=== PATIENT | male | born 1960 | race African-American/Black ===

== ENCOUNTER 2018-12-12 15:25 | Observation (INO) | payer OTHER ==
[2018-12-12 16:05] LABS: Basophils % (A) 1 %; Eosinophils # (A) 0.2 k/uL (0-0.7); Eosinophils % (A) 4 %; HCT 42.8 % (39.0-53.0); HGB 14.3 gm/dL (13.0-17.5); Lymphocytes # (A) 1.9 k/uL (1.0-4.8); Lymphocytes % (A) 37 %; MCH 30.9 pg (25.0-35.0); MCHC 33.4 g/dL (31.0-37.0); MCV 92.5 fL (80.0-100.0); Mean Platelet Volume 7.6; Monocytes # (A) 0.3 k/uL (0-1.0); Monocytes % (A) 7 %; Neutrophils # (A) 2.5 k/uL (1.3-7.7); Neutrophils % (A) 48 %; Platelet Count 232 k/uL (150-450); RBC 4.63 m/uL (4.30-5.90); RDW 14.5 % (11.5-15.5); WBC 5.3 k/uL (3.8-10.6)
[2018-12-12 16:12] LABS: INR 0.9 (<1.2); Partial Thromboplastin Time 26.1 sec (22.0-30.0); Prothrombin Time 10.2 sec (9.0-12.0)
[2018-12-12 16:14] LABS: ALT 46 U/L (21-72); AST 60 U/L (17-59); Albumin 4.4 g/dL (3.5-5.0); Alkaline Phosphatase 68 U/L (38-126); Anion Gap 8 mmol/L; Blood Urea Nitrogen 20 mg/dL (9-20); Calcium 10.4 mg/dL (8.4-10.2); Carbon Dioxide 29 mmol/L (22-30); Chloride 101 mmol/L (98-107); Glucose 76 mg/dL (74-99); Lipase 48 U/L (23-300); Magnesium 1.7 mg/dL (1.6-2.3); Potassium 4.8 mmol/L (3.5-5.1); Sodium 138 mmol/L (137-145); Total Bilirubin 0.5 mg/dL (0.2-1.3); Total Protein 7.1 g/dL (6.3-8.2)
[2018-12-12] MEDS ORDERED: MAGNESIUM SULFATE-D5W PMX 1 GM in DEXTROSE/WATER 1 100ML.BAG IVPB ONE (16:40)
--- NOTE | 2018-12-12 16:50 | XR ---
EXAMINATION TYPE: XR chest 2V DATE OF EXAM: 12/12/2018 COMPARISON: NONE HISTORY: Chest pain TECHNIQUE: Frontal and lateral views of the chest are obtained. FINDINGS: There is no focal air space opacity, pleural effusion, or pneumothorax seen. Slight pulmo nary hyperinflation may relate to degree of inspiration or underlying COPD. The cardiac silhouette si ze is within normal limits. The osseous structures are intact. IMPRESSION: No acute cardiopulmonary process.
--- NOTE | 2018-12-12 19:05 | ED ---
Chest Pain HPI - General Chief Complaint: Chest Pain Stated Complaint: CHEST PAIN Time Seen by Provider: 12/12/18 15:28 Source: patient, EMS Mode of arrival: EMS Limitations: no limitations - History of Present Illness Initial Comments: The patient is a 58-year-old male who presents to the emergency department from [place]. The patient reports a history of chest pain for the past 30 days. States he has had approximately 5 episodes. He will have sudden onset of right-sided chest pain that will radiate to the left side of his chest and into his left arm. Denies any ripping or tearing sensation to his back. Denies any provocative factors. States he will have mild associated shortness of breath. The pain will last for 15-30 minutes before spontaneously resolving. He normally does not take any medications for his symptoms. He denies a history of cardiac disease. No associated nausea, vomiting or diaphoresis. The chest pain is not reproducible. Today when the incident happened EMS did provide him with 324 mg of chewable aspirin and the pain resolved. Denies a pleuritic chest pain. No history of DVTs or PEs. No family history of blood clotting disorders. The patient has not used cocaine, heroin or alcohol in 30 days - Related Data Home Medications Medication Instructions Recorded Confirmed Divalproex Sodium [Depakote] 500 mg PO BID 12/12/18 12/12/18 Multivitamins, Thera [Multivitamin 1 tab PO DAILY 12/12/18 12/12/18 (formulary)] QUEtiapine [SEROquel] 100 mg PO HS 12/12/18 12/12/18 Allergies Allergy/AdvReac Type Severity Reaction Status Date / Time No Known Allergies Allergy Verified 12/12/18 15:48 Review of Systems ROS Statement: Those systems with pertinent positive or pertinent negative responses have been documented in the HPI. ROS Other: All systems not noted in ROS Statement are negative. EKG Findings - EKG Comments: EKG Findings:: EKG demonstrates a normal sinus rhythm with a ventricular rate of 64. DC interval 146 QRS 92 and QTC of 410. There are no acute ST segment elevations. The patient does have some J-point elevation in leads V2 through V4 however this is less then 2 mm which would be normal for the patient's age. There is a T-wave inversion in lead [address] depression. Past Medical History Past Medical History: Chest Pain / Angina History of Any Multi-Drug Resistant Organisms: None Reported Additional Past Surgical History / Comment(s): back sx Past Psychological History: No Psychological Hx Reported Smoking Status: Former smoker Past Alcohol Use History: Daily Past Drug Use History: Cocaine General Exam Limitations: no limitations General appearance: alert, in no apparent distress Head exam: Present: atraumatic, normocephalic, normal inspection Eye exam: Present: normal appearance, PERRL, EOMI. Absent: scleral icterus, conjunctival injection, periorbital swelling ENT exam: Present: normal exam, mucous membranes moist Neck exam: Present: normal inspection. Absent: tenderness, meningismus, lymphadenopathy Respiratory exam: Present: normal lung sounds bilaterally. Absent: respiratory distress, wheezes, rales, rhonchi, stridor Cardiovascular Exam: Present: regular rate, normal rhythm, normal heart sounds, other (The patient has symmetric palpable pulses. No reproducible chest pain). Absent: systolic murmur, diastolic murmur, rubs, gallop, clicks GI/Abdominal exam: Present: soft, normal bowel sounds. Absent: distended, tenderness, guarding, rebound, rigid Extremities exam: Present: normal inspection, full ROM, normal capillary refill. Absent: tenderness, pedal edema, joint swelling, calf tenderness Back exam: Present: normal inspection Neurological exam: Present: alert, oriented X3, CN II-XII intact Psychiatric exam: Present: normal affect, normal mood Skin exam: Present: warm, dry, intact, normal color. Absent: rash Course Vital Signs 12/12/18 12/12/18 12/12/18 15:38 17:14 19:00 Temperature 98.0 F Pulse Rate 66 70 65 Respiratory 16 18 16 Rate Blood Pressure 118/65 137/97 117/80 O2 Sat by Pulse 97 98 97 Oximetry 12/12/18 19:36 Temperature Pulse Rate Respiratory 18 Rate Blood Pressure O2 Sat by Pulse Oximetry Chest Pain MDM - Differential Diagnosis ACS, Pericarditis, GERD, Esophageal Spasm - MDM The patient was placed into room 1. A 12-lead EKG was performed. The patient was hooked up to continuous pulse ox and cardiac monitoring. He had been previously given 324 mg of chewable aspirin by EMS. I did recommend laboratory studies. The patient was sent for chest x-ray. Upon return results the patient continues to be symptom free. I did recommend hospital admission for which the patient did agree. I called and discussed the case with Dr. Tristan as the patient's primary care physician is not on staff. Dr. Tristan did accept admission of the patient. The patient will remain on cardiac monitoring and we will trend his troponins. The patient remained in stable condition and was transported to the floor Disposition Clinical Impression: Chest pain Disposition: ADMITTED IP TO THIS HOSP Condition: Stable Is patient prescribed a controlled substance at d/c from ED?: No Time of Disposition: 19:05 Decision to Admit Reason: Admit from EC Decision Date: 12/12/18 Decision Time: 19:05
[2018-12-12] MEDS ORDERED: QUEtiapine 100 MG TAB PO SCH (21:00)
--- NOTE | 2018-12-12 22:26 | HP ---
HISTORY AND PHYSICAL CHIEF COMPLAINT: Chest pain. HISTORY OF PRESENT ILLNESS: This gentleman presented to the emergency room with a history of some chest pain. He states it had been going on off and on for about a month. It is just to the right of the sternal border and then he stated it radiated into the left arm. He is a little bit short of breath, but he had no diaphoresis, nausea, etc. He thinks it might be related to eating. He has no risk factors for heart disease. Studies in the ER were negative. REVIEW OF SYSTEMS: He has had no neurologic problems, difficulty with vision or hearing, chest pain, shortness of breath, cough, hemoptysis, hypertension, murmurs, rheumatic fever, orthopnea, PND, abdominal pain, GERD, nausea, vomiting, hematemesis, dysphagia, melena, hematochezia, jaundice, hepatitis, cirrhosis, hematuria, renal failure, urgency, frequency, etc. He is not diabetic past medical history, family history personal and social history reveal that he is on Depakote and Seroquel. He is not allergic to anything. He had a fracture of the tibia that was treated before and a procedure on his back. He smokes about half pack of cigarettes a day and he is a recovering alcoholic. PHYSICAL EXAMINATION: Blood pressure is 141/86 with a pulse of 73, respirations of 22, and he is afebrile. In general, he appeared to be well developed, well nourished, in no acute distress. Skin color is normal skin is warm, dry. Lymph nodes not enlarged. HEENT: Normal. NECK: Neck veins not distended. Thyroid is not enlarged. CHEST: Clear. Chest wall nontender. CARDIAC: Exam is normal. Normal normal sinus rhythm and no murmurs or extra sounds. ABDOMEN: Soft and nontender without any visceromegaly or masses. Bowel sounds are present. EXTREMITIES: Normal. NEUROLOGIC: Intact. IMPRESSION: 1. Atypical chest pain. 2. Bipolar depression. PLAN: 1. Bed rest. 2. IV fluids. 3. Serial EKGs and enzymes. MMODL / IJN: [id number] /
[2018-12-12] MEDS: DIVALPROEX 500 MG TABLET.DR PO SCH (22:41)
[2018-12-13 03:16] LABS: Basophils % (A) 1 %; Eosinophils # (A) 0.3 k/uL (0-0.7); Eosinophils % (A) 6 %; HCT 42.5 % (39.0-53.0); Lymphocytes # (A) 2.1 k/uL (1.0-4.8); Lymphocytes % (A) 43 %; MCH 30.8 pg (25.0-35.0); MCHC 32.9 g/dL (31.0-37.0); MCV 93.5 fL (80.0-100.0); Mean Platelet Volume 7.8; Monocytes # (A) 0.3 k/uL (0-1.0); Monocytes % (A) 7 %; Neutrophils # (A) 1.9 k/uL (1.3-7.7); Neutrophils % (A) 39 %; Platelet Count 209 k/uL (150-450); RBC 4.54 m/uL (4.30-5.90); WBC 4.8 k/uL (3.8-10.6)
[2018-12-13 03:36] LABS: Anion Gap 7 mmol/L; Blood Urea Nitrogen 21 mg/dL (9-20); Calcium 9.8 mg/dL (8.4-10.2); Carbon Dioxide 26 mmol/L (22-30); Chloride 103 mmol/L (98-107); Glucose 106 mg/dL (74-99); Magnesium 1.6 mg/dL (1.6-2.3); Potassium 4.5 mmol/L (3.5-5.1); Sodium 136 mmol/L (137-145)
[2018-12-13] MEDS: DIVALPROEX 500 MG TABLET.DR PO SCH (08:51)
[2018-12-13] MEDS ORDERED: MULTIVITAMINS, THERA 1 EACH TAB PO SCH (12:00)
[2018-12-13 12:18] VITALS: BP 127/79; PULSE 67; RESP 18; TEMP 97.9
--- NOTE | 2018-12-13 20:03 | DS ---
DISCHARGE SUMMARY CHIEF COMPLAINT: Chest pain. HISTORY OF PRESENT ILLNESS AND PHYSICAL EXAM: Details of this man's history and physical can be found in the initial workup. LABORATORY STUDIES: While he was in the hospital, he had laboratory studies, details of which can be found in the laboratory section of his chart. COURSE IN HOSPITAL: After admission, he was placed on bedrest, started on intravenous fluids and had serial EKGs and enzymes and they were normal. He was seen by Cardiology and felt that this was noncardiac. The patient was anxious to be transferred back to [place] and he was released on the . FINAL DIAGNOSES: 1. Atypical chest pain. 2. Bipolar depression. 3. Alcoholism. OPERATIONS: None. CONSULTATION: Cardiology. He is improved. MMODL / IJN: [id number] /
== END 2018-12-13 13:32 | disposition home or self-care (01) ==
LOC: EC 15:25 → 1SOBS 17:44
PROVIDERS: ADMIT Family Medicine; ATTEND Family Medicine
DX: R07.89 Other chest pain (principal); F31.9 Bipolar disorder, unspecified; F10.20 Alcohol dependence, uncomplicated; R06.02 Shortness of breath; F17.210 Nicotine dependence, cigarettes, uncomplicated; Z79.899 Other long term (current) drug therapy; Z87.81 Personal history of (healed) traumatic fracture
CPT/HCPCS: 96365; 99285; 36415; 93005; 80164; 83880; 80053; 80048; 84443; 83690; 83735 ×2; 84484 ×2; 85025 ×2; 85610; 85730; 71046; G0378 ×2; J3475

== ENCOUNTER 2019-02-20 17:21 | Emergency (ER) | payer OTHER ==
[2019-02-20 17:30] VITALS: BP 140/91; PULSE 74; RESP 20; TEMP 98.7
[2019-02-20] MEDS ORDERED: IBUPROFEN 600 MG TAB PO STA (18:06)
[2019-02-20] MEDS ORDERED: guaiFENesin-DM 600/30MG 1 EACH TAB.ER.12H PO STA (18:06)
[2019-02-20] MEDS ORDERED: DOCUSATE 100 MG CAP PO STA (18:06)
--- NOTE | 2019-02-20 18:40 | XR ---
EXAMINATION TYPE: XR chest 2V DATE OF EXAM: 02/20/2019 COMPARISON: 12/12/2018 HISTORY: Sore throat cough TECHNIQUE: Frontal and lateral views of the chest are obtained. FINDINGS: Heart and mediastinum are normal. Lungs are clear. Diaphragm is normal. Bony thorax appear s normal. IMPRESSION: Normal chest. No change.
--- NOTE | 2019-02-20 18:42 | ED ---
General Adult HPI - General Chief complaint: ENT Stated complaint: sore throat Time Seen by Provider: 02/20/19 18:01 Source: patient Mode of arrival: ambulatory Limitations: no limitations - History of Present Illness Initial comments: 58-year-old male patient currently in treatment at [facility] for substance abuse presents to the emergency department today for evaluation of sore throat, cough, nasal congestion. Patient states his been sick for the last 3 days with these symptoms. States that his throat is becoming more sore. Sta lindsay he did have a fever 101F the other day. States he has taken Tylenol for symptom relief however doesn't seem to be helping much. Denies any sputum production with this cough. States he does smoke cigarettes. Denies any shortness of breath with this. States he does feel generally weak. Patient also reports being constipated, states it is causing some mild rectal bleeding. He is requesting a stool softener. Patient denies any recent rash, chest pain, abdominal pain, nausea, vomiting, diarrhea, constipation, back pain, numbness, tingling, dizziness, weakness, hematuria, dysuria, urinary urgency, urinary frequency, headache, visual changes, or any other complaints. - Related Data Home Medications Medication Instructions Recorded Confirmed Divalproex Sodium [Depakote] 500 mg PO BID 12/12/18 12/12/18 Multivitamins, Thera [Multivitamin 1 tab PO DAILY 12/12/18 12/12/18 (formulary)] QUEtiapine [SEROquel] 100 mg PO HS 12/12/18 12/12/18 Previous Rx's Medication Instructions Recorded Docusate [Colace] 100 mg PO DAILY #30 capsule 02/20/19 Ibuprofen [Motrin] 600 mg PO Q8HR PRN #30 tab 02/20/19 guaiFENesin-DM 600/30MG [Mucinex 1 each PO Q12HR #10 tab.er.12h 02/20/19 Dm] Allergies Allergy/AdvReac Type Severity Reaction Status Date / Time No Known Allergies Allergy Verified 02/20/19 17:30 Review of Systems ROS Statement: Those systems with pertinent positive or pertinent negative responses have been documented in the HPI. ROS Other: All systems not noted in ROS Statement are negative. Past Medical History Past Medical History: Chest Pain / Angina History of Any Multi-Drug Resistant Organisms: None Reported Past Surgical History: Back Surgery Additional Past Surgical History / Comment(s): back sx Past Anesthesia/Blood Transfusion Reactions: No Reported Reaction Past Psychological History: No Psychological Hx Reported Smoking Status: Current every day smoker Past Alcohol Use History: Daily Past Drug Use History: Cocaine General Exam Limitations: no limitations General appearance: alert, in no apparent distress, other (Physical well- developed, well-nourished adult male patient in no acute distress. Vital signs upon presentation are temperature 98.7F, pulse 74, respirations 20, blood pressure 140/91, pulse ox 99% on room air.) Eye exam: Present: normal appearance, PERRL, EOMI. Absent: scleral icterus, conjunctival injection, periorbital swelling ENT exam: Present: mucous membranes moist, TM's normal bilaterally. Absent: normal exam, normal oropharynx (Pharyngeal erythema, tonsillar hypertrophy. No tonsillar exudate noted.) Neck exam: Present: normal inspection. Absent: tenderness, meningismus, lymphadenopathy Respiratory exam: Present: normal lung sounds bilaterally. Absent: respiratory distress, wheezes, rales, rhonchi, stridor Cardiovascular Exam: Present: regular rate, normal rhythm, normal heart sounds. Absent: systolic murmur, diastolic murmur, rubs, gallop, clicks GI/Abdominal exam: Present: soft, normal bowel sounds. Absent: distended, tenderness, guarding, rebound, rigid Neurological exam: Present: alert, oriented X3, CN II-XII intact Psychiatric exam: Present: normal affect, normal mood Skin exam: Present: warm, dry, intact, normal color. Absent: rash Course Vital Signs 02/20/19 17:28 Temperature 98.7 F Pulse Rate 74 Respiratory 20 Rate Blood Pressure 140/91 O2 Sat by Pulse 99 Oximetry Medical Decision Making - Medical Decision Making 58-year-old male patient presents to the emergency department today for evaluation of cough, nasal congestion, and sore throat 3 days. Physical exami nation revealed clear equal lung sounds. Tympanic membranes are normal. He is afebrile with normal vital signs. Chest x-ray showed no acute cardio pulmonary process. Strep test was negative. I did discuss findings and results with the patient. Symptoms are consistent with viral upper respiratory infection. He'll be given prescription for ibuprofen for sore throat and Mucinex DM. He is inst ructed to increase fluids and rest. Instructed to follow-up with his primary care physician for recheck in 1-2 days. Return parameters discussed in detail. He verbalizes understanding and agrees with this plan. - Lab Data Lab Results 02/20/19 Range/Units 18:05 Group A Strep Rapid Negative (Negative) - Radiology Data Radiology results: report reviewed, image reviewed Two-view x-ray of the chest is obtained. Report was reviewed in its entirety. Impression by Dr. Young shows normal chest with no change. Disposition Clinical Impression: Viral upper respiratory illness Disposition: HOME SELF-CARE Condition: Good Instructions (If sedation given, give patient instructions): Upper Respiratory Infection (ED) Additional Instructions: Increase fluids. Take medications as directed. Follow-up with the primary care physician for recheck in 1-2 days. Return to the emergency department immediately for any new, worsening, or concerning symptoms. Prescriptions: Docusate [Colace] 100 mg PO DAILY #30 capsule Ibuprofen [Motrin] 600 mg PO Q8HR PRN #30 tab PRN Reason: Pain guaiFENesin-DM 600/30MG [Mucinex Dm] 1 each PO Q12HR #10 tab.er.12h Is patient prescribed a controlled substance at d/c from ED?: No Referrals: Nonstaff,Physician [Primary Care Provider] - 1-2 days Time of Disposition: 18:57
== END 2019-02-20 20:11 | disposition home or self-care (01) ==
LOC: EC 17:21
DX: J98.8 Other specified respiratory disorders (principal); F17.200 Nicotine dependence, unspecified, uncomplicated; Z79.899 Other long term (current) drug therapy
CPT/HCPCS: 71046; 87081; 87430; 99283

== ENCOUNTER 2021-02-17 15:17 | Observation (INO) | payer OTHER ==
[2021-02-17] MEDS ORDERED: ASPIRIN 81 MG PO STA (15:40)
--- NOTE | 2021-02-17 15:43 | ED ---
General Adult HPI - General Chief complaint: Upper Respiratory Infection Stated complaint: congestion, cough Time Seen by Provider: 02/17/21 15:26 Source: patient Mode of arrival: ambulatory Limitations: no limitations - History of Present Illness Initial comments: 60-year-old male with history of dyslipidemia is presenting to the emergency Department with a chief complaint of cough, chest pain and shortness of breath. Patient reports over the last 2 days is developed a nonproductive cough with occasional shortness of breath after coughing fits. Patient also reports having sharp, stabbing pain in the substernal region without any radiation. States this is occurred 3-4 times over the last month. States the most recent episode was while he was sleeping, and woke him out of sleep and lasted for approximately 2 minutes. He denies any chest pain at this time. States over the last 3 days she has been experiencing diaphoretic episodes and denies any associated lightheadedness dizziness or visual changes, one-sided weakness or paresthesias. Patient ready received his 2 Pfizer vaccines over a month ago. - Related Data Home Medications Medication Instructions Recorded Confirmed Divalproex Sodium [Depakote] 500 mg PO BID 12/12/18 12/12/18 Multivitamins, Thera [Multivitamin 1 tab PO DAILY 12/12/18 12/12/18 (formulary)] QUEtiapine [SEROquel] 100 mg PO HS 12/12/18 12/12/18 Previous Rx's Medication Instructions Recorded Docusate [Colace] 100 mg PO DAILY #30 capsule 02/20/19 Ibuprofen [Motrin] 600 mg PO Q8HR PRN #30 tab 02/20/19 guaiFENesin-DM 600/30MG [Mucinex 1 each PO Q12HR #10 tab.er.12h 02/20/19 Dm] Allergies Allergy/AdvReac Type Severity Reaction Status Date / Time No Known Allergies Allergy Verified 02/17/21 15:23 Review of Systems ROS Statement: Those systems with pertinent positive or pertinent negative responses have been documented in the HPI. ROS Other: All systems not noted in ROS Statement are negative. Past Medical History Past Medical History: Chest Pain / Angina History of Any Multi-Drug Resistant Organisms: None Reported Past Surgical History: Back Surgery Additional Past Surgical History / Comment(s): back sx, orthopedic surgery - left leg. Past Anesthesia/Blood Transfusion Reactions: No Reported Reaction Past Psychological History: No Psychological Hx Reported Smoking Status: Current every day smoker Past Alcohol Use History: Daily Past Drug Use History: Cocaine General Exam Limitations: no limitations General appearance: alert, in no apparent distress Head exam: Present: atraumatic, normocephalic, normal inspection Eye exam: Present: normal appearance, PERRL, EOMI Pupils: Present: normal accommodation ENT exam: Present: normal exam, normal oropharynx, mucous membranes moist Neck exam: Present: normal inspection, full ROM. Absent: tenderness, lymphadenopathy Respiratory exam: Present: normal lung sounds bilaterally. Absent: respiratory distress, wheezes, rales, rhonchi, stridor, chest wall tenderness, accessory muscle use Cardiovascular Exam: Present: regular rate, normal rhythm, normal heart sounds. Absent: systolic murmur, diastolic murmur GI/Abdominal exam: Present: soft. Absent: distended, tenderness, guarding, rebound Extremities exam: Present: normal inspection, full ROM, normal capillary refill. Absent: tenderness, pedal edema, joint swelling Back exam: Present: normal inspection, full ROM. Absent: tenderness, CVA tenderness (R), CVA tenderness (L), muscle spasm, paraspinal tenderness, vertebral tenderness Neurological exam: Present: alert, oriented X3 Psychiatric exam: Present: normal affect, normal mood Skin exam: Present: warm, dry, intact, normal color Course Vital Signs 02/17/21 15:19 Temperature 98.1 F Pulse Rate 91 Respiratory 18 Rate Blood Pressure 120/77 O2 Sat by Pulse 96 Oximetry EKG Findings - EKG Comments: EKG Findings:: Sinus rhythm and no acute ischemic changes. Ventricular rate 81, NV 156, QRS 90, QTC 453. Medical Decision Making - Medical Decision Making 60-year-old male with history of dyslipidemia is presenting to the emergency Department with a chief complaint of cough, chest pain and shortness of breath. Physical examination is unremarkable. Vital signs are within normal limits. Chest x-ray is unremarkable. Negative cardiac workup with a negative d-dimer and troponins. EKG showed no acute findings. Considering the patient's risk factors, including dyslipidemia, age and smoking, he will be admitted for cardiac observation. Case discussed with Dr. Benavides. Admitting physician is Dr. Stewart Cardiology consult. - Lab Data Result diagrams: 02/17/21 16:32 02/17/21 16:32 Lab Results 02/17/21 02/17/21 02/17/21 Range/Units 16:32 16:32 16:32 WBC 9.8 (3.8-10.6) k/uL RBC 5.02 (4.30-5.90) m/uL Hgb 15.3 (13.0-17.5) gm/dL Hct 47.4 (39.0-53.0) % MCV 94.4 (80.0-100.0) fL MCH 30.4 (25.0-35.0) pg MCHC 32.2 (31.0-37.0) g/dL RDW 13.4 (11.5-15.5) % Plt Count 290 (150-450) k/uL MPV 7.2 Neutrophils % 66 % Lymphocytes % 24 % Monocytes % 5 % Eosinophils % 2 % Basophils % 1 % Neutrophils # 6.5 (1.3-7.7) k/uL Lymphocytes # 2.3 (1.0-4.8) k/uL Monocytes # 0.5 (0-1.0) k/uL Eosinophils # 0.2 (0-0.7) k/uL Basophils # 0.1 (0-0.2) k/uL PT 10.8 (9.0-12.0) sec INR 1.0 (<1.2) APTT 24.2 (22.0-30.0) sec D-Dimer 0.30 (<0.60) mg/L FEU Sodium 138 (137-145) mmol/L Potassium 4.5 (3.5-5.1) mmol/L Chloride 105 (98-107) mmol/L Carbon Dioxide 23 (22-30) mmol/L Anion Gap 10 mmol/L BUN 32 H (9-20) mg/dL Creatinine 1.05 (0.66-1.25) mg/dL Est GFR (CKD-EPI)AfAm >90 (>60 ml/min/1.73 sqM) Est GFR (CKD-EPI)NonAf 78 (>60 ml/min/1.73 sqM) Glucose 117 H (74-99) mg/dL Calcium 10.1 (8.4-10.2) mg/dL Magnesium 1.7 (1.6-2.3) mg/dL Total Bilirubin 0.4 (0.2-1.3) mg/dL AST 42 (17-59) U/L ALT 49 (4-49) U/L Alkaline Phosphatase 73 (38-126) U/L Troponin I (0.000-0.034) ng/mL Total Protein 7.4 (6.3-8.2) g/dL Albumin 4.5 (3.5-5.0) g/dL 02/17/21 Range/Units 16:32 WBC (3.8-10.6) k/uL RBC (4.30-5.90) m/uL Hgb (13.0-17.5) gm/dL Hct (39.0-53.0) % MCV (80.0-100.0) fL MCH (25.0-35.0) pg MCHC (31.0-37.0) g/dL RDW (11.5-15.5) % Plt Count (150-450) k/uL MPV Neutrophils % % Lymphocytes % % Monocytes % % Eosinophils % % Basophils % % Neutrophils # (1.3-7.7) k/uL Lymphocytes # (1.0-4.8) k/uL Monocytes # (0-1.0) k/uL Eosinophils # (0-0.7) k/uL Basophils # (0-0.2) k/uL PT (9.0-12.0) sec INR (<1.2) APTT (22.0-30.0) sec D-Dimer (<0.60) mg/L FEU Sodium (137-145) mmol/L Potassium (3.5-5.1) mmol/L Chloride (98-107) mmol/L Carbon Dioxide (22-30) mmol/L Anion Gap mmol/L BUN (9-20) mg/dL Creatinine (0.66-1.25) mg/dL Est GFR (CKD-EPI)AfAm (>60 ml/min/1.73 sqM) Est GFR (CKD-EPI)NonAf (>60 ml/min/1.73 sqM) Glucose (74-99) mg/dL Calcium (8.4-10.2) mg/dL Magnesium (1.6-2.3) mg/dL Total Bilirubin (0.2-1.3) mg/dL AST (17-59) U/L ALT (4-49) U/L Alkaline Phosphatase (38-126) U/L Troponin I <0.012 (0.000-0.034) ng/mL Total Protein (6.3-8.2) g/dL Albumin (3.5-5.0) g/dL Disposition Clinical Impression: Chest pain Disposition: ADMITTED IP TO THIS [facility] Condition: Stable Is patient prescribed a controlled substance at d/c from ED?: No Referrals: Nonstaff,Physician [Primary Care Provider] - 1-2 days Time of Disposition: 18:00
[2021-02-17 16:44] LABS: Basophils # (A) 0.1 k/uL (0-0.2); Basophils % (A) 1 %; Eosinophils # (A) 0.2 k/uL (0-0.7); Eosinophils % (A) 2 %; HCT 47.4 % (39.0-53.0); HGB 15.3 gm/dL (13.0-17.5); Lymphocytes # (A) 2.3 k/uL (1.0-4.8); Lymphocytes % (A) 24 %; MCH 30.4 pg (25.0-35.0); MCHC 32.2 g/dL (31.0-37.0); MCV 94.4 fL (80.0-100.0); Mean Platelet Volume 7.2; Monocytes # (A) 0.5 k/uL (0-1.0); Monocytes % (A) 5 %; Neutrophils # (A) 6.5 k/uL (1.3-7.7); Neutrophils % (A) 66 %; Platelet Count 290 k/uL (150-450); RBC 5.02 m/uL (4.30-5.90); RDW 13.4 % (11.5-15.5); WBC 9.8 k/uL (3.8-10.6)
--- NOTE | 2021-02-17 16:46 | XR ---
EXAMINATION TYPE: XR chest 2V DATE OF EXAM: 02/17/2021 COMPARISON: 02/20/2019 HISTORY: Chest pain TECHNIQUE: FINDINGS: There is no heart failure nor confluent pneumonic infiltrate. Costophrenic angles are clear . There are chest leads. Heart size is normal. The bony thorax is intact. IMPRESSION: No active cardiopulmonary disease. No adverse change.
[2021-02-17 16:59] LABS: ALT 49 U/L (4-49); AST 42 U/L (17-59); African American GFR (CKD) >90 (>60 ml/min/1.73 sqM); Albumin 4.5 g/dL (3.5-5.0); Alkaline Phosphatase 73 U/L (38-126); Anion Gap 10 mmol/L; Blood Urea Nitrogen 32 mg/dL (9-20); Calcium 10.1 mg/dL (8.4-10.2); Carbon Dioxide 23 mmol/L (22-30); Chloride 105 mmol/L (98-107); D-Dimer 0.3 mg/L FEU (<0.60); Glucose 117 mg/dL (74-99); Magnesium 1.7 mg/dL (1.6-2.3); Non-African American GFR(CKD) 78 (>60 ml/min/1.73 sqM); Partial Thromboplastin Time 24.2 sec (22.0-30.0); Potassium 4.5 mmol/L (3.5-5.1); Prothrombin Time 10.8 sec (9.0-12.0); Sodium 138 mmol/L (137-145); Total Bilirubin 0.4 mg/dL (0.2-1.3); Total Protein 7.4 g/dL (6.3-8.2)
[2021-02-17] MEDS ORDERED: NITROGLYCERIN SL TABS 0.4 MG TAB SUBLINGUAL PRN (17:57)
[2021-02-17] MEDS ORDERED: ALPRAZolam 0.25 MG TAB PO PRN (21:41)
[2021-02-17] MEDS ORDERED: TEMAZEPAM 15 MG CAP PO PRN (21:41)
[2021-02-17] MEDS ORDERED: ACETAMINOPHEN TAB 500 MG TAB PO PRN (21:41)
[2021-02-17] MEDS ORDERED: HYDROcodone/APAP 5-325MG 1 EACH TAB PO PRN (21:41)
[2021-02-17] MEDS: QUEtiapine 25 MG TAB PO SCH (21:43)
[2021-02-17] MEDS: HEPARIN SODIUM,PORCINE/PF 5,000 UNIT/0.5 ML SYRINGE SQ SCH (22:25)
--- NOTE | 2021-02-17 23:14 | HP ---
HISTORY AND PHYSICAL DATE OF SERVICE: 02/17/2021 CHIEF COMPLAINT: Congestion, cough and chest pain. HISTORY OF PRESENT ILLNESS: This 60-year-old gentleman with a past medical history of multiple medical problems including history of back surgery, history of DJD, history of nicotine dependence, being followed by primary physician in the [facility], was complaining of some chest congestion. The patient also has some cough and the patient also had chest pain which was felt in the epigastrium. The patient also had some coughing fits. The pain was not radiating, mild to moderate intensity. No sweating or any shortness of breath and patient came to [facility] and was admitted for evaluation and treatment. The initial troponins are negative. The initial EKG which I reviewed personally showed some ST changes with non-progression R-wave in the EKG. There is no history of fever, rigors. No headache, loss of consciousness, seizures. PAST MEDICAL HISTORY: History of back surgery, history of DJD, history of nicotine dependence. HOME MEDICATIONS: Seroquel 150 mg q.h.s. ALLERGIES: None. FAMILY HISTORY: No history of heart disease or strokes in the family. SOCIAL HISTORY: History of continued ongoing smoking. No history of alcohol and alcohol intake. REVIEW OF SYSTEMS: ENT No history of diminished hearing or vision. CARDIOVASCULAR As mentioned earlier. RESPIRATORY As [id number] earlier. GI No nausea, vomiting, or diarrhea. No dysuria or hematuria. NERVOUS No numbness or weakness. ALLERGY/IMMUNOLOGY No asthma or hayfever. MUSCULOSKELETAL As mentioned earlier. HEMATOLOGY/ONCOLOGY Negative. ENDOCRINE No history of diabetes or hypothyroidism. CONSTITUTIONAL As mentioned earlier. DERMATOLOGY Negative. RHEUMATOLOGY Negative, PSYCHIATRY As mentioned earlier. PHYSICAL EXAMINATION: Alert and oriented x3. Pulse 63, blood pressure 128/76, respiration 20, temperature 98.4, pulse ox 97% on room air. HEENT: Conjunctivae normal. Oral mucosa moist. NECK: No jugular venous distention. No lymph node enlargement. No carotid bruit. CARDIOVASCULAR: S1, S2, muffled. No S3, no S4, RESPIRATORY: Diminished breath sounds at the bases. No rhonchi, no crackles. ABDOMEN: Soft, nontender. No mass palpable. LEGS: No edema, no swelling. NERVOUS SYSTEM: Higher functions mentioned earlier. Moves all four limbs. No focal motor or sensory deficits. LYMPHATICS: No lymph node in neck or axilla. SKIN: No rash. JOINTS: No active deforming arthropathy. LABS: CBC within normal limits. Glucose is 117. Labs are noted. ASSESSMENT: 1. Chest pain, possible unstable angina. 2. Diffuse ST-T changes in the EKG. 3. Elevated random glucose. 4. History of continued ongoing nicotine dependence. 5. History of back surgery, DJD. 6. History of cocaine. RECOMMENDATIONS: In this 60-year-old gentleman who presented with multiple complex. We will monitor the patient closely, continue the current medications, rule out myocardial infarction, ( ) protocol, Cardiology consultation. The prognosis guarded because of multiple complex medical issues. Further recommendations to follow. The patient apparently did not have any cardiac workup so far. Patient will need some workup and we will follow the patient closely with Cardiology. Further recommendations to follow. See orders for further details. MMODL / IJN: [id number] /
[2021-02-17 23:35] LABS: ALT 45 U/L (4-49); AST 36 U/L (17-59); African American GFR (CKD) >90 (>60 ml/min/1.73 sqM); Albumin 4.1 g/dL (3.5-5.0); Albumin/Globulin Ratio 1.6; Alkaline Phosphatase 81 U/L (38-126); Anion Gap 6 mmol/L; Blood Urea Nitrogen 32 mg/dL (9-20); Calcium 9.7 mg/dL (8.4-10.2); Carbon Dioxide 28 mmol/L (22-30); Chloride 103 mmol/L (98-107); Globulin 2.6 g/dL; Glucose 86 mg/dL (74-99); Non-African American GFR(CKD) 79 (>60 ml/min/1.73 sqM); Potassium 4.5 mmol/L (3.5-5.1); Sodium 137 mmol/L (137-145); Total Bilirubin 0.3 mg/dL (0.2-1.3); Total Protein 6.7 g/dL (6.3-8.2)
[2021-02-18 02:24] VITALS: RESP 18
[2021-02-18] MEDS ORDERED: PANTOPRAZOLE 40 MG TABLET PO SCH (07:30)
[2021-02-18] MEDS ORDERED: ASPIRIN 325 MG TAB PO SCH (09:00)
[2021-02-18] MEDS: QUEtiapine 25 MG TAB PO SCH (09:16)
[2021-02-18] MEDS: HEPARIN SODIUM,PORCINE/PF 5,000 UNIT/0.5 ML SYRINGE SQ SCH (09:16)
[2021-02-18 09:30] LABS: Basophils # (A) 0.05 X 10*3/uL (0.00-0.10); Basophils % (A) 0.7 %; Eosinophils # (A) 0.22 X 10*3/uL (0.04-0.35); HCT 45.7 % (39.6-50.0); HGB 14.9 g/dL (13.0-17.0); Lymphocytes # (A) 2.55 X 10*3/uL (0.90-5.00); Lymphocytes % (A) 34.6 %; MCHC 32.6 g/dL (32.0-37.0); Mean Platelet Volume 9.7 fL (9.5-12.2); Monocytes # (A) 0.66 X 10*3/uL (0.20-1.00); Neutrophils # (A) 3.88 X 10*3/uL (1.80-7.70); Neutrophils % (A) 52.6 %; Platelet Count 263 X 10*3/uL (140-440); RBC 4.81 X 10*6/uL (4.40-5.60); WBC 7.37 X 10*3/uL (4.50-10.00)
--- NOTE | 2021-02-18 09:39 | ECHOF ---
Referral Reason:cad MEASUREMENTS -------- HEIGHT: 190.5 cm WEIGHT: 112.5 kg BP: 130/82 RVIDd: 3.8 cm (< 3.3) IVSd: 1.6 cm (0.6 - 1.1) LVIDd: 4.1 cm (3.9 - 5.3) LVPWd: 1.6 cm (0.6 - 1.1) IVSs: 2.2 cm LVIDs: 2.2 cm LVPWs: 2.1 cm LAESV Index (A-L): 15.97 ml/m Ao Diam: 3.3 cm (2.0 - 3.7) AV Cusp: 1.5 cm (1.5 - 2.6) MV EXCURSION: 20.757 mm (> 18.000) MV EF SLOPE: 68 mm/s (70 - 150) EPSS: 0.6 cm MV E Hardik: 0.65 m/s MV DecT: 187 ms MV A Hardik: 0.51 m/s MV E/A Ratio: 1.28 RAP: 5.00 mmHg RVSP: 25.76 mmHg FINDINGS -------- Sinus rhythm. This was a technically adequate study. The left ventricular size is normal. There is moderate concentric left ventricular hypertrophy. O verall left ventricular systolic function is normal with, an EF between 55 - 60 %. The diastolic fi lling pattern is normal for the age of the patient 11.30. The right ventricle is mild to moderately enlarged. Normal LA size by volume 22+/-6 ml/m2. The right atrial size is normal. Interatrial and interventricular septum intact. There is no evidence of aortic regurgitation. There is no evidence of aortic stenosis. No mitral regurgitation. Mild tricuspid regurgitation present. There is no evidence of pulmonary hypertension. The right v entricular systolic pressure, as measured by Doppler, is 25.76mmHg. There is no pulmonic regurgitation present. The aortic root size is normal. IVC Not well visulized. There is no pericardial effusion. CONCLUSIONS -------- 1. The left ventricular size is normal. 2. There is moderate concentric left ventricular hypertrophy. 3. Overall left ventricular systolic function is normal with, an EF between 55 - 60 %. 4. The diastolic filling pattern is normal for the age of the patient 11.30 5. The right ventricle is mild to moderately enlarged. 6. Mild tricuspid regurgitation present. [employer]: Carol Veronica RDCS
[2021-02-18 09:42] LABS: Chol/HDL Ratio 5.87
[2021-02-18] MEDS ORDERED: ATORVASTATIN 20 MG TAB PO SCH (10:45)
[2021-02-18 11:09] VITALS: BP 111/69; PULSE 70; TEMP 97.3
--- NOTE | 2021-02-18 16:26 | P.CRDCN ---
History of Present Illness Consult date: 02/18/21 History of present illness: This is a 60-year-old gentleman with history of nicotine dependence. History of DJD and previous back surgeries was admitted to the hospital complaining of cough and congestion. Denied any fever or chills. Patient also had vague discomfort in the chest about a week ago. In view of multiple symptoms patient is admitted to the hospital. A chest x-ray did not show any significant abnormality. EKG did not reveal show any acute changes. Cardiac enzymes are negative. Echo Cardigan showed normal LV function. At this point from cardiac standpoint, patient appeared to be clinically stable. If medically stable, patient could be discharged home. He could be scheduled for a stress test as an outpatient Review of Systems As per the chart Past Medical History Past Medical History: Chest Pain / Angina History of Any Multi-Drug Resistant Organisms: None Reported Past Surgical History: Back Surgery Additional Past Surgical History / Comment(s): back sx, orthopedic surgery - left leg. Past Anesthesia/Blood Transfusion Reactions: No Reported Reaction Past Psychological History: No Psychological Hx Reported Smoking Status: Current every day smoker Past Alcohol Use History: Daily Additional Past Alcohol Use History / Comment(s): Pt states that he smokes 1/2 pack per day. Past Drug Use History: Cocaine Additional Drug Use History / Comment(s): Pt states he has been clean the last 30 days. Medications and Allergies Home Medications Medication Instructions Recorded Confirmed Type QUEtiapine XR [SEROquel XR] 150 mg PO HS 02/17/21 02/17/21 History Aspirin EC [Ecotrin Low Dose] 81 mg PO DAILY #30 tablet. 02/18/21 Rx Atorvastatin [Lipitor] 20 mg PO DAILY #30 tab 02/18/21 Rx Pantoprazole [Protonix] 40 mg PO AC-BRKFST #10 tablet. 02/18/21 Rx Allergies Allergy/AdvReac Type Severity Reaction Status Date / Time No Known Allergies Allergy Verified 02/17/21 18:11 Physical Exam Vitals: Vital Signs Temp Pulse Pulse Resp BP BP Pulse Ox 02/18/21 08:04 97.3 F L 70 18 111/69 97 02/18/21 02:42 63 18 02/18/21 02:00 97.6 F 63 18 130/82 98 02/17/21 21:05 98.4 F 63 20 128/76 97 02/17/21 20:46 18 02/17/21 20:43 18 02/17/21 17:57 18 02/17/21 17:56 74 18 118/68 97 Intake and Output 02/18/21 02/18/21 02/18/21 06:59 14:59 22:59 Intake Total 200 Balance 200 Intake: Oral 200 Other: Voiding Method Toilet Toilet # Voids 2 GENERAL EXAM: Patient is alert and oriented and doesn't appear to be in any acute distress HEENT: Normocephalic. Normal reaction of pupils, equal size, normal range of extraocular motion. No erythema or exudates in the throat. NECK: No masses, no nuchal rigidity. CHEST: No chest wall deformity. LUNGS: Equal air entry with no crackles or wheeze. HEART: S1 and S2 normal with no audible mumurs or gallops. Regular rhythm, femorals equal on both sides.. ABDOMEN: No hepatosplenomegaly, normal bowel sounds, no guarding or rigidity. SKIN: No rashes CENTRAL NERVOUS SYSTEM: No focal deficits. EXTREMITIES: No cyanosis, clubbing or edema. Results 02/18/21 06:19 02/17/21 22:00 Cardiac Enzymes 02/17/21 02/17/21 02/17/21 Range/Units 16:32 16:32 19:25 AST 42 (17-59) U/L Troponin I <0.012 <0.012 (0.000-0.034) ng/mL 02/17/21 02/17/21 Range/Units 22:00 22:00 AST 36 (17-59) U/L Troponin I <0.012 (0.000-0.034) ng/mL Coagulation 02/17/21 Range/Units 16:32 PT 10.8 (9.0-12.0) sec APTT 24.2 (22.0-30.0) sec Lipids 02/18/21 Range/Units 06:19 Triglycerides 115.0 (0.0-149.0) mg/dL Cholesterol 229 H (0-200) mg/dL HDL Cholesterol 39.0 L (40.0-60.0) mg/dL Cholesterol/HDL Ratio 5.87 CBC 02/17/21 02/18/21 Range/Units 16:32 06:19 WBC 9.8 7.37 (3.8-10.6) k/uL RBC 5.02 4.81 (4.30-5.90) m/uL Hgb 15.3 14.9 (13.0-17.5) gm/dL Hct 47.4 45.7 (39.0-53.0) % Plt Count 290 263 (150-450) k/uL Comprehensive Metabolic Panel 02/17/21 02/17/21 Range/Units 16:32 22:00 Sodium 138 137 (137-145) mmol/L Potassium 4.5 4.5 (3.5-5.1) mmol/L Chloride 105 103 (98-107) mmol/L Carbon Dioxide 23 28 (22-30) mmol/L BUN 32 H 32 H (9-20) mg/dL Creatinine 1.05 1.04 (0.66-1.25) mg/dL Glucose 117 H 86 (74-99) mg/dL Calcium 10.1 9.7 (8.4-10.2) mg/dL AST 42 36 (17-59) U/L ALT 49 45 (4-49) U/L Alkaline Phosphatase 73 81 (38-126) U/L Total Protein 7.4 6.7 (6.3-8.2) g/dL Albumin 4.5 4.1 (3.5-5.0) g/dL Intake and Output 02/18/21 02/18/21 02/18/21 06:59 14:59 22:59 Intake Total 200 Balance 200 Intake: Oral 200 Other: Voiding Method Toilet Toilet # Voids 2 02/18/21 06:19 02/17/21 22:00 EKG Interpretations (text) Sinus rhythm Assessment and Plan (1) Chest pain Status: Acute Code(s): R07.9 - CHEST PAIN, UNSPECIFIED SNOMED Code(s): 76875466 Plan: Workup including cardiac enzymes, EKGs and echo are within normal limits. Last episode of chest pain was more than a week ago. Patient main complaints of cough and congestion. If medically fit, patient could be discharged home. O utpatient stress test for further evaluation
--- NOTE | 2021-02-19 08:23 | DS ---
DISCHARGE SUMMARY FINAL DIAGNOSIS: 1. Chest pain, myocardial infarction ruled out. Rule out coronary artery disease. 2. Diffuse ST-T changes in the EKG. 3. Elevated random glucose. 4. History of continued ongoing nicotine dependence. 5. History of back surgery and degenerative joint disease. 6. Remote history of cocaine. 7. Hyperlipidemia. DISCHARGE DISPOSITION: The patient will be discharged in stable condition with guarded prognosis. HISTORY OF PRESENT ILLNESS: This 60-year-old gentleman with a past medical history of multiple medical problems, being followed by primary physician elsewhere was admitted with chest pain. Myocardial infarction was ruled out. Cardiology saw the patient. A 2D echo was noted and the patient recommended outpatient followup and possible stress test. PHYSICAL EXAMINATION: On exam vitals stable. Cardiovascular S1 and S2. Abdomen soft. Nervous system no focal deficits. DISCHARGE INSTRUCTIONS: Discharge diet is cardiac. Activity limited until followup. Follow up with primary physician in 2-3 days. Follow up with Cardiology as recommended with stress test. MEDICATIONS: Seroquel XR 150 mg q.h.s., Ecotrin 81 mg daily, Lipitor 20 mg p.o. daily, Protonix 40 mg p.o. daily. Follow up with primary and Cardiology. Patient is stable but overall prognosis is guarded. MMODL / IJN: [id number] /
== END 2021-02-18 13:11 | disposition home or self-care (01) ==
LOC: EC 15:17 → 6NMEDSUR 17:57
PROVIDERS: ADMIT Internal Medicine; ATTEND Internal Medicine
DX: R07.9 Chest pain, unspecified (principal); R10.13 Epigastric pain; F17.210 Nicotine dependence, cigarettes, uncomplicated; Z20.822 Contact with and (suspected) exposure to COVID-19; R94.31 Abnormal electrocardiogram [ECG] [EKG]; R73.9 Hyperglycemia, unspecified; R53.1 Weakness; E78.5 Hyperlipidemia, unspecified; M51.9 Unspecified thoracic, thoracolumbar and lumbosacral intervertebral disc disorder; Z79.899 Other long term (current) drug therapy; Z79.82 Long term (current) use of aspirin; Z98.890 Other specified postprocedural states; Z86.59 Personal history of other mental and behavioral disorders
CPT/HCPCS: 99285; 36415; 93005; 93306; 85379; 80061; 80053; 83735; 84484; 85025 ×2; 85610; 85730; 87635; 71046; G0378 ×2

== ENCOUNTER 2022-11-11 11:46 | Observation (INO) | payer OTHER ==
[2022-11-11] MEDS ORDERED: SODIUM CHLORIDE 0.9% 1,000 ML IV STA (12:19)
[2022-11-11] MEDS ORDERED: SODIUM CHLORIDE 0.9% 500 ML 500 ML IV STA (12:19)
[2022-11-11] MEDS ORDERED: ACETAMINOPHEN TAB 500 MG TAB PO STA (12:19)
[2022-11-11 12:48] LABS: ALT 67 U/L (4-49); AST 46 U/L (17-59); African American GFR (CKD) >90 (>60 ml/min/1.73 sqM); Alkaline Phosphatase 81 U/L (38-126); Anion Gap 9 mmol/L; Blood Urea Nitrogen 13 mg/dL (9-20); Calcium 9.3 mg/dL (8.4-10.2); Carbon Dioxide 26 mmol/L (22-30); Chloride 100 mmol/L (98-107); Glucose 80 mg/dL (74-99); Non-African American GFR(CKD) >90 (>60 ml/min/1.73 sqM); Phosphorus 4.2 mg/dL (2.5-4.5); Potassium 4.5 mmol/L (3.5-5.1); Sodium 135 mmol/L (137-145); Total Bilirubin 1.4 mg/dL (0.2-1.3); Total Protein 7.4 g/dL (6.3-8.2)
[2022-11-11 12:53] LABS: Partial Thromboplastin Time 24.2 sec (22.0-30.0); Prothrombin Time 10.8 sec (9.0-12.0)
[2022-11-11 12:54] LABS: HCT 48.7 % (39.0-53.0); HGB 16.5 gm/dL (13.0-17.5); MCH 32.4 pg (25.0-35.0); MCHC 33.9 g/dL (31.0-37.0); MCV 95.5 fL (80.0-100.0); Mean Platelet Volume 7.6; Platelet Count 241 k/uL (150-450); RDW 13.1 % (11.5-15.5); WBC 11.9 k/uL (3.8-10.6)
--- NOTE | 2022-11-11 12:58 | CT ---
EXAMINATION TYPE: CT brain wo con CT DLP: 1188.4 mGycm, Automated exposure control for dose reduction was used. DATE OF EXAM: 11/11/2022 12:45 PM COMPARISON: None CLINICAL INDICATION:Male, 62 years old with history of weakness, ams TECHNIQUE: Brain: Axial CT images of the brain were obtained with coronal and sagittal reformats created and rev iewed. Contrast used: None. Oral contrast used: None. FINDINGS: Brain: Extra-axial spaces: No abnormal extra-axial fluid collections. Ventricular system: Within normal limits Cerebral parenchyma: No acute intraparenchymal hemorrhage or mass effect. The livingston-white junction is well differentiated. Cerebellum: Unremarkable. Mass effect: No evidence of midline shift. Intracranial vasculature: unremarkable Soft tissues: Normal. Calvarium/osseous structures: No depressed skull fracture. Paranasal sinuses and mastoid air cells: Mild scattered paranasal sinus disease. Visualized orbits: Orbital contents are intact. IMPRESSION: No acute intracranial process.
--- NOTE | 2022-11-11 12:59 | XR ---
EXAMINATION TYPE: XR soft tissue neck DATE OF EXAM: 11/11/2022 12:48 PM INDICATION: Patient age:Male; 62 years old; Reason for study: throat pain; COMPARISON: None TECHNIQUE: The soft tissues of the neck were imaged in frontal and lateral views. FINDINGS: The prevertebral soft tissues are unremarkable. There is no evidence of mass effect or trac heal deviation. No acute osseous abnormality demonstrated. No evidence of subglottic narrowing. IMPRESSION: No significant abnormality identified within the soft tissues of the neck.
[2022-11-11 13:21] LABS: Basophils # (M) 0.12 k/uL (0-0.2); Lymphocytes # (M) 2.38 k/uL (1.0-4.8); Neutrophils % (M) 63 %; Nucleated Red Blood Cells 0 /100 WBC (0-0); Total Cells Counted 100
[2022-11-11 13:22] LABS: Poikilocytosis (M) Present
[2022-11-11] MEDS ORDERED: AMOXICILLIN 500 MG CAP PO STA (13:40)
--- NOTE | 2022-11-11 14:04 | ED ---
General Adult HPI - General Chief complaint: Weakness Stated complaint: weakness Time Seen by Provider: 11/11/22 12:09 Source: EMS Mode of arrival: EMS Limitations: no limitations - History of Present Illness Initial comments: This 62-year-old male presents with a complaint of some slurred speech, difficulty with ambulation, weakness, and confusion. He states that this started 2-3 days ago. It started directly after he checked in to [facility]. He states that they started giving him a medication which cause these symptoms. Upon looking at the medication list, it is likely Librium. They were prescribing, 100 mg 3 times a day. He apparently left him know that he would like to be transferred to the hospital today due to his symptomatology. He apparently has been through rehabilitation previously and states that this is quite abnormal. He also complains of a sore throat and some pain with swallowing. He denies any fevers or chills. He complains of slurred speech as well. He states that he has been in rehabilitation primarily for alcohol abuse drinking more than a fifth a day. He also has a daily cocaine habit. He utilizes heroin infrequently. He denies any other complaints or modifying factors. - Related Data Home Medications Medication Instructions Recorded Confirmed Acetaminophen [Tylenol 8 Hour] 650 mg PO Q4H PRN MDD 1,950 MG 11/11/22 11/11/22 Calcium, Magnesium, Zinc, With Vit 1 tab PO TID PRN 11/11/22 11/11/22 D3 Chlorpheniramine Maleate 4 mg PO Q4H PRN 11/11/22 11/11/22 [Chlor-Trimeton] Ibuprofen [Motrin Ib] 600 mg PO Q6H PRN 11/11/22 11/11/22 chlordiazePOXIDE HCl [Librium] See Taper PO DIRECTED 11/11/22 11/11/22 cloNIDine HCL [Catapres] 0.1 - 0.3 mg PO DIRECTED PRN 11/11/22 11/11/22 ondansetron HCL [Zofran] 8 mg PO Q6H PRN 11/11/22 11/11/22 Allergies Allergy/AdvReac Type Severity Reaction Status Date / Time No Known Allergies Allergy Verified 11/11/22 13:20 Review of Systems ROS Statement: Those systems with pertinent positive or pertinent negative responses have been documented in the HPI. ROS Other: All systems not noted in ROS Statement are negative. Past Medical History Past Medical History: Chest Pain / Angina History of Any Multi-Drug Resistant Organisms: None Reported Past Surgical History: Back Surgery Additional Past Surgical History / Comment(s): back sx, orthopedic surgery - le ft leg. Past Anesthesia/Blood Transfusion Reactions: No Reported Reaction Past Psychological History: No Psychological Hx Reported Smoking Status: Current every day smoker Past Alcohol Use History: Daily Past Drug Use History: Cocaine, Heroin General Exam - General Exam Comments Initial Comments: GENERAL: The patient is well nourished and well hydrated. VITAL SIGNS: Heart rate, blood pressure, respiratory rate reviewed as recorded in nurse's notes. EYES: Pupils are round and reactive. Extraocular movements are intact. No conjunctival / lid redness or swelling. ENT: No external evidence of injury, swelling, or ecchymosis. Airway is patent. Throat is erythematous. NECK: Nontender. No swelling or evidence of injury. No subcutaneous emphysema. Trachea is midline. No thyroid mass. HEART: Regular rate and rhythm. Good peripheral pulses. LUNGS/CHEST: Breath sounds clear and equal bilaterally. No rales, rhonchi, or wheezes. No ecchymosis, subcutaneous emphysema, or tenderness. ABDOMEN: Abdomen soft without tenderness. No palpable masses or organomegaly. No peritoneal signs. No abdominal wall swelling or ecchymosis. EXTREMITIES: No extremity tenderness. Normal muscle tone and function. No t horacolumbar tenderness. NEUROLOGIC: Sensation is grossly intact. Cranial nerve exam reveals face is symmetrical, tongue is midline, speech is slurred. SKIN: No abrasions or ecchymosis is noted. No induration or masses noted. PSYCHIATRIC: Alert and oriented. Appropriate behavior and judgment. Limitations: no limitations Course Vital Signs 11/11/22 11:54 Temperature 98.6 F Pulse Rate 86 Respiratory 16 Rate Blood Pressure 124/87 O2 Sat by Pulse 96 Oximetry Medical Decision Making - Medical Decision Making Was pt. sent in by a medical professional or institution (, PA, BARREL ASSEMBLER, urgent care, hospital, or custodial...) When possible be specific @ -Patient was sent in to our facility from [facility]. Did you speak to anyone other than the patient for history (EMS, parent, family, police, friend...)? What history was obtained from this source @ -No Did you review nursing and triage notes (agree or disagree)? Why? @ -I reviewed and agree with nursing and triage notes Were old charts reviewed (outside hosp., previous admission, EMS record, old EKG, old radiological studies, urgent care reports/EKG's, custodial records)? Report findings @ -Records from [facility] are reviewed and it does relate that he was on 100 mg of Librium 3 times a day. It seems as though this is a very high dose and it is suspected that this may be the cause of his symptomatology. Differential Diagnosis (chest pain, altered mental status, abdominal pain women, abdominal pain men, vaginal bleeding, weakness, fever, dyspnea, syncope, headache, dizziness, GI bleed, back pain, seizure, CVA, palpatations, mental health, musculoskeletal)? @ -Medication interaction, delirium tremens, CVA, electrolyte abnormality, anemia, or Wernicke's encephalopathy EKG interpreted by me (3pts min.). @ -EKG as interpreted by myself and does show normal sinus rhythm at a rate of 85. There is no acute ST or T-wave changes identified. Intervals are normal. X-rays interpreted by me (1pt min.). @ -Soft tissue neck x-rays interpreted by myself and does not show any acute abnormalities. Radiologist does agree. CT interpreted by me (1pt min.). @ -Computed tomography scan of the brain is interpreted by radiology and does not show any acute process. U/S interpreted by me (1pt. min.). @ -None done What testing was considered but not performed or refused? (CT, X-rays, U/S, labs)? Why? @ -None What meds were considered but not given or refused? Why? @ -None Did you discuss the management of the patient with other professionals (professionals i.e. , PA, BARREL ASSEMBLER, lab, RT, psych nurse, social service technician, back joiner, teacher, traffic control officer, spring encaser)? Give summary @ -Case is discussed with internal medicine who is agreeable with admission. Was smoking cessation discussed for >3mins.? @ -No Was critical care preformed (if so, how long)? @ -No Were there social determinants of health that impacted care today? How? (Homelessness, low income, unemployed, alcoholism, drug addiction, tra nsportation, low edu. Level, literacy, decrease access to med. care, ch[facility], rehab)? @ -The patient does have social determinants that impacts his healthcare. This does include alcoholism, drug addiction and homelessness. Was there de-escalation of care discussed even if they declined (Discuss DNR or withdrawal of care, Hospice)? DNR status @ -No What co-morbidities impacted this encounter? (DM, HTN, Smoking, COPD, CAD, C ancer, CVA, ARF, Chemo, Hep., AIDS, mental health diagnosis, sleep apnea, morbid obesity)? @ -Drug abuse, alcohol abuse Was patient admitted / discharged? Hospital course, mention meds given and route, prescriptions, significant lab abnormalities, going to OR and other pertinent info. @ -The patient was seen and examined. He is hydrated. His strep screen came back positive and he receives amoxicillin orally as well as some steroids. He is given Solu-Medrol 60 mg IV. His other laboratory evaluation is all essentially within normal limits. It is felt as though his symptoms are likely related to increased Librium dosing. It is felt as though he benefit from a observation stay for further evaluation until at this drug wear off as he is having difficulty with ambulation and is at increased fall risk. Undiagnosed new problem with uncertain prognosis? @ -No Drug Therapy requiring intensive monitoring for toxicity (Heparin, Nitro, Insulin, Cardizem)? @ -No Were any procedures done? @ -No Diagnosis/symptom? @ -Librium toxicity, slurred speech, ataxia, confusion, weakness, strep throat Acute, or Chronic, or Acute on Chronic? @ -Acute Uncomplicated (without systemic symptoms) or Complicated (systemic symptoms)? @ -Uncomplicated Side effects of treatment? @ -No Exacerbation, Progression, or Severe Exacerbation? @ -No Poses a threat to life or bodily function? How? (Chest pain, USA, CA, pneumonia, PE, COPD, DKA, ARF, appy, cholecystitis, CVA, Diverticulitis, Homicidal, Suicidal, threat to staff... and all critical care pts) @ -No - Lab Data Result diagrams: 11/11/22 12:28 11/11/22 12:28 Lab Results 11/11/22 11/11/22 11/11/22 Range/Units 12:28 12:28 12:28 WBC 11.9 H (3.8-10.6) k/uL RBC 5.10 (4.30-5.90) m/uL Hgb 16.5 (13.0-17.5) gm/dL Hct 48.7 (39.0-53.0) % MCV 95.5 (80.0-100.0) fL MCH 32.4 (25.0-35.0) pg MCHC 33.9 (31.0-37.0) g/dL RDW 13.1 (11.5-15.5) % Plt Count 241 (150-450) k/uL MPV 7.6 Neutrophils % (Manual) 63 % Lymphocytes % (Manual) 20 % Monocytes % (Manual) 16 % Basophils % (Manual) 1 % Neutrophils # (Manual) 7.50 (1.3-7.7) k/uL Lymphocytes # (Manual) 2.38 (1.0-4.8) k/uL Monocytes # (Manual) 1.90 H (0-1.0) k/uL Basophils # (Manual) 0.12 (0-0.2) k/uL Nucleated RBCs 0 (0-0) /100 WBC Manual Slide Review Performed Poikilocytosis (manual Present PT 10.8 (9.0-12.0) sec INR 1.0 (<1.2) APTT 24.2 (22.0-30.0) sec Sodium 135 L (137-145) mmol/L Potassium 4.5 (3.5-5.1) mmol/L Chloride 100 (98-107) mmol/L Carbon Dioxide 26 (22-30) mmol/L Anion Gap 9 mmol/L BUN 13 (9-20) mg/dL Creatinine 0.83 (0.66-1.25) mg/dL Est GFR (CKD-EPI)AfAm >90 (>60 ml/min/1.73 sqM) Est GFR (CKD-EPI)NonAf >90 (>60 ml/min/1.73 sqM) Glucose 80 (74-99) mg/dL Calcium 9.3 (8.4-10.2) mg/dL Phosphorus 4.2 (2.5-4.5) mg/dL Magnesium 2.0 (1.6-2.3) mg/dL Total Bilirubin 1.4 H (0.2-1.3) mg/dL AST 46 (17-59) U/L ALT 67 H (4-49) U/L Alkaline Phosphatase 81 (38-126) U/L Total Protein 7.4 (6.3-8.2) g/dL Albumin 4.0 (3.5-5.0) g/dL TSH 0.908 (0.465-4.680) mIU/L Heterophile Antibody (Negative) Group A Strep (PCR) (Not Detectd) 11/11/22 11/11/22 Range/Units 12:28 12:28 WBC (3.8-10.6) k/uL RBC (4.30-5.90) m/uL Hgb (13.0-17.5) gm/dL Hct (39.0-53.0) % MCV (80.0-100.0) fL MCH (25.0-35.0) pg MCHC (31.0-37.0) g/dL RDW (11.5-15.5) % Plt Count (150-450) k/uL MPV Neutrophils % (Manual) % Lymphocytes % (Manual) % Monocytes % (Manual) % Basophils % (Manual) % Neutrophils # (Manual) (1.3-7.7) k/uL Lymphocytes # (Manual) (1.0-4.8) k/uL Monocytes # (Manual) (0-1.0) k/uL Basophils # (Manual) (0-0.2) k/uL Nucleated RBCs (0-0) /100 WBC Manual Slide Review Poikilocytosis (manual PT (9.0-12.0) sec INR (<1.2) APTT (22.0-30.0) sec Sodium (137-145) mmol/L Potassium (3.5-5.1) mmol/L Chloride (98-107) mmol/L Carbon Dioxide (22-30) mmol/L Anion Gap mmol/L BUN (9-20) mg/dL Creatinine (0.66-1.25) mg/dL Est GFR (CKD-EPI)AfAm (>60 ml/min/1.73 sqM) Est GFR (CKD-EPI)NonAf (>60 ml/min/1.73 sqM) Glucose (74-99) mg/dL Calcium (8.4-10.2) mg/dL Phosphorus (2.5-4.5) mg/dL Magnesium (1.6-2.3) mg/dL Total Bilirubin (0.2-1.3) mg/dL AST (17-59) U/L ALT (4-49) U/L Alkaline Phosphatase (38-126) U/L Total Protein (6.3-8.2) g/dL Albumin (3.5-5.0) g/dL TSH (0.465-4.680) mIU/L Heterophile Antibody Negative (Negative) Group A Strep (PCR) DETECTED A (Not Detectd) Disposition Clinical Impression: Medication adverse effect, Slurred speech, Strep throat, Ataxia [facility]position[facility] Condition: Fair Is patient prescribed a controlled substance at d/c from ED?: No Referrals: None,Stated [Primary Care Provider] - 1-2 days Time of Disposition: 14:09 Decision Date: 11/11/22 Decision Time: 14:09
[2022-11-11] MEDS ORDERED: ONDANSETRON 4 MG/2 ML VIAL IVP PRN (14:09)
[2022-11-11] MEDS ORDERED: NALOXONE 0.4 MG/ML 1 ML VIAL IV PRN (14:09)
[2022-11-11] MEDS ORDERED: ACETAMINOPHEN TAB 325 MG TAB PO PRN ×2 (14:09→14:52)
[2022-11-11] MEDS ORDERED: methylPREDNISolone SOD SUCCI 125 MG/2 ML VIAL IV STA (14:09)
[2022-11-11] MEDS ORDERED: diphenhydrAMINE 25 MG CAP PO PRN (14:52)
[2022-11-11] MEDS: PANTOPRAZOLE 40 MG/10 ML VIAL IV SCH (14:52)
--- NOTE | 2022-11-11 15:02 | P.HPIM ---
History of Present Illness H&P Date: 11/11/22 Chief Complaint: Lethargy, gait unsteadiness 62-year-old man with medical history of alcohol abuse disorder, cocaine abuse, nicotine dependence, degenerative disc disease presented for lethargy, gait unsteadiness. He is also complaining of sore throat. Patient says that he went to [facility] approximately 3 days ago for alcohol and cocaine abuse and supervise withdrawal. They started him on Librium 100 mg 3 times a day and he feels the medication dosage was too high because he started to feel increasingly weak, lethargic, unsteady and started to develop slurred speech. He said these issues progressed over the course of the previous 3 days prompting his ev aluation in the emergency room. In addition, he noticed that he started her throat in the last couple days with hoarse voice and addition to a slurred speech. He denies fevers, chills, nausea, vomiting, chest pain, palpitations, syncope, recently, cough, dyspnea, abdominal pain, constipation, diarrhea, dysuria, dyschezia, numbness/weakness of extremities. In the emergency room, patient was afebrile, 124/87, heart rate 86, 96% on room air. CBC is remarkable for leukocytosis to 11.9. Chemistries show hyponatremic to 135. Liver function test show elevated total bilirubin 1.4, ALT of 67, AST of 46. TSH is 0.908. Coags were unremarkable. Heterophile antibody was negative. Group A strep was detected. Brain CT showed no acute intracranial process. Soft tissue neck x-ray was negative for significant abnormalities. Case was discussed with the emergency room physician and decision was made to admit the patient to observation for iatrogenic medication overdose. All Systems reviewed and pertinent positives and negatives noted in HPI, all other symptoms are negative Gen: in no apparent distress, resting comfortably in bed Eyes: PERRL, no scleral injection or icterus HENT: normocephalic, atraumatic, good hearing acuity, moist mucous membranes Neck: no tracheal deviation, full range of motion Resp: good air exchange, breathing comfortably with no accessory muscle use, no tactile fremitus, clear to auscultation bilaterally CVS: good distal perfusion x 4, no pitting edema, regular rate and rhythm without murmurs GI: soft, NTTP, ND, no hepatosplenomegaly : no suprapubic tenderness, no CVAT, gutierrez catheter not present MSK: no clubbing, no cyanosis, no noted contractures of extremities Skin: no noted rashes, petechiae; temperature of skin is appropriate Neuro: moving all extremities without signs of weakness, CN II-XII intact Psych: cooperative, euthymic mood, insight and judgment intact Labs and imaging as above Assessment: Iatrogenic medication overdose with benzodiazepine Group A strep pharyngitis Alcohol abuse disorder Cocaine abuse Nicotine abuse Plan: Vital signs reviewed and noted in HPI CBC, basic metabolic panel, liver function test, TSH, coags, heterophile antibody, group A strep were reviewed and noted in HPI Brain CT and soft tissue neck x-ray were reviewed and noted in HPI Case was discussed with the emergency room provider and decision was made to admit the patient to observation for iatrogenic medication overdose Monitor patient on telemetry Provide patient with banana bag and then daily thiamine supplementation, folate, multivitamin Monitor for withdrawal Treat patient with amoxicillin 500 mg twice a day Patient is full code Past Medical History Past Medical History: Chest Pain / Angina History of Any Multi-Drug Resistant Organisms: None Reported Past Surgical History: Back Surgery Additional Past Surgical History / Comment(s): back sx, orthopedic surgery - left leg. Past Anesthesia/Blood Transfusion Reactions: No Reported Reaction Past Psychological History: No Psychological Hx Reported Smoking Status: Current every day smoker Past Alcohol Use History: Daily Past Drug Use History: Cocaine, Heroin Medications and Allergies Home Medications Medication Instructions Recorded Confirmed Type Acetaminophen [Tylenol 8 Hour] 650 mg PO Q4H PRN MDD 1,950 MG 11/11/22 11/11/22 History Calcium, Magnesium, Zinc, With Vit 1 tab PO TID PRN 11/11/22 11/11/22 History D3 Chlorpheniramine Maleate 4 mg PO Q4H PRN 11/11/22 11/11/22 History [Chlor-Trimeton] Ibuprofen [Motrin Ib] 600 mg PO Q6H PRN 11/11/22 11/11/22 History chlordiazePOXIDE HCl [Librium] See Taper PO DIRECTED 11/11/22 11/11/22 History cloNIDine HCL [Catapres] 0.1 - 0.3 mg PO DIRECTED PRN 11/11/22 11/11/22 History ondansetron HCL [Zofran] 8 mg PO Q6H PRN 11/11/22 11/11/22 History Allergies Allergy/AdvReac Type Severity Reaction Status Date / Time No Known Allergies Allergy Verified 11/11/22 13:20 Physical Exam Osteopathic Statement: *. No significant issues noted on an osteopathic structural exam other than those noted in the History and Physical/Consult. Vitals: Vital Signs Temp Pulse Resp BP Pulse Ox 11/11/22 14:00 88 16 111/72 97 11/11/22 13:30 86 16 131/91 99 11/11/22 13:00 82 17 121/82 97 11/11/22 12:30 86 18 126/94 98 11/11/22 12:02 87 16 124/87 97 11/11/22 11:54 98.6 F 86 16 124/87 96 Intake and Output 11/10/22 11/11/22 11/11/22 21:59 06:59 14:59 Other: Weight 97.6 kg Results CBC & Chem 7: 11/11/22 12:28 11/11/22 12:28 Labs: Abnormal Lab Results - Last 24 Hours (Table) 11/11/22 11/11/22 11/11/22 Range/Units 12:28 12:28 12:28 WBC 11.9 H (3.8-10.6) k/uL Monocytes # (Manual) 1.90 H (0-1.0) k/uL Sodium 135 L (137-145) mmol/L Total Bilirubin 1.4 H (0.2-1.3) mg/dL ALT 67 H (4-49) U/L Group A Strep (PCR) DETECTED A (Not Detectd)
[2022-11-11] MEDS: THIAMINE 100 MG TAB PO SCH (15:31)
[2022-11-11] MEDS: FOLIC ACID 1 MG TAB PO SCH (15:31)
[2022-11-11] MEDS: MULTIVITAMINS, THERA 1 EACH TAB PO SCH (15:31)
[2022-11-11] MEDS ORDERED: AMOXICILLIN 500 MG CAP PO SCH (16:00)
[2022-11-11 17:57] LABS: Appearance,Urine Clear (Clear); Bilirubin,Urine Negative (Negative); Blood,Urine Negative (Negative); Color,Urine Yellow; Glucose,Urine (UA) Negative (Negative); Ketones,Urine Negative (Negative); Leukocyte Esterase,Urine Negative (Negative); Nitrite,Urine Negative (Negative); PH, Urine 5.5 (5.0-8.0); Protein,Urine Negative (Negative); Specific Gravity,Urine 1.008 (1.001-1.035); Urobilinogen,Urine <2.0 mg/dL (<2.0)
[2022-11-11] MEDS: predniSONE 20 MG TAB PO SCH (21:22)
[2022-11-11] MEDS: AMOXICILLIN 500 MG CAP PO SCH (21:22)
[2022-11-12] MEDS: FOLIC ACID 1 MG TAB PO SCH (08:32)
[2022-11-12] MEDS: predniSONE 20 MG TAB PO SCH (08:32)
[2022-11-12] MEDS: MULTIVITAMINS, THERA 1 EACH TAB PO SCH (08:32)
[2022-11-12] MEDS: AMOXICILLIN 500 MG CAP PO SCH (08:32)
[2022-11-12] MEDS: THIAMINE 100 MG TAB PO SCH (08:32)
[2022-11-12] MEDS: PANTOPRAZOLE 40 MG/10 ML VIAL IV SCH (08:32)
[2022-11-12 08:43] VITALS: BP 117/68; PULSE 76; RESP 16; TEMP 97.5
[2022-11-12] MEDS ORDERED: ENOXAPARIN 40 MG/0.4 ML SYRINGE SQ SCH (09:00)
--- NOTE | 2022-11-12 10:25 | P.DS ---
Providers Date of admission: 11/11/22 14:09 Expected date of discharge: 11/12/22 Attending physician: Christy Sanderson MD Primary care physician: Stated None Hospital Course: Assessment: Iatrogenic medication overdose with benzodiazepine Group A strep pharyngitis Alcohol abuse disorder Cocaine abuse Nicotine abuse Hospital Course: 62-year-old man with medical history of alcohol abuse disorder, cocaine abuse, nicotine dependence, degenerative disc disease presented for lethargy, gait unsteadiness. He is also complaining of sore throat. In the emergency room, patient was afebrile, 124/87, heart rate 86, 96% on room air. CBC is remarkable for leukocytosis to 11.9. Chemistries show hyponatremic to 135. Liver function test show elevated total bilirubin 1.4, ALT of 67, AST of 46. TSH is 0.908. Coags were unremarkable. Heterophile antibody was negative. Group A strep was detected. Brain CT showed no acute intracranial process. Soft tissue neck x- ray was negative for significant abnormalities. Case was discussed with the emergency room physician and decision was made to admit the patient to observation for iatrogenic medication overdose. Patient was doing well as following day with no evidence of respiratory depression and was recovering well from high doses of benzodiazepines. He was subsequently discharged back to rehab with new medications of amoxicillin to treat a strep throat. He did not exhibit any signs of alcohol withdrawal at the time of discharge. Gen: in no apparent distress, resting comfortably in bed Eyes: PERRL, no scleral injection or icterus HENT: normocephalic, atraumatic, good hearing acuity, moist mucous membranes Neck: no tracheal deviation, full range of motion Resp: good air exchange, breathing comfortably with no accessory muscle use, no tactile fremitus, clear to auscultation bilaterally CVS: good distal perfusion x 4, no pitting edema, regular rate and rhythm without murmurs GI: soft, NTTP, ND, no hepatosplenomegaly : no suprapubic tenderness, no CVAT, gutierrez catheter not present MSK: no clubbing, no cyanosis, no noted contractures of extremities Skin: no noted rashes, petechiae; temperature of skin is appropriate Neuro: moving all extremities without signs of weakness, CN II-XII intact Psych: cooperative, euthymic mood, insight and judgment intact Patient Condition at Discharge: Good Plan - Discharge Summary Discharge Rx Participant: Yes New Discharge Prescriptions: New Thiamine [Vitamin B-1] 100 mg PO DAILY #14 tab Amoxicillin 500 mg PO BID #14 cap Folic Acid 1 mg PO DAILY #14 tab Multivitamins, Thera [Multivitamin (formulary)] 1 each PO DAILY #14 tab Continue Acetaminophen [Tylenol 8 Hour] 650 mg PO Q4H PRN MDD 1,950 MG PRN Reason: Pain Or Fever > 100.5 Chlorpheniramine Maleate [Chlor-Trimeton] 4 mg PO Q4H PRN PRN Reason: Allergy Symptoms Calcium, Magnesium, Zinc, With Vit D3 1 tab PO TID PRN PRN Reason: supplement ondansetron HCL [Zofran] 8 mg PO Q6H PRN PRN Reason: Nausea Ibuprofen [Motrin Ib] 600 mg PO Q6H PRN PRN Reason: Pain Or Fever > 100.5 cloNIDine HCL [Catapres] 0.1 - 0.3 mg PO DIRECTED PRN PRN Reason: BP over 160/100 Discontinued chlordiazePOXIDE HCl [Librium] See Taper PO DIRECTED Discharge Medication List Acetaminophen [Tylenol 8 Hour] 650 mg PO Q4H PRN MDD 1,950 MG 11/11/22 [History] Calcium, Magnesium, Zinc, With Vit D3 1 tab PO TID PRN 11/11/22 [History] Chlorpheniramine Maleate [Chlor-Trimeton] 4 mg PO Q4H PRN 11/11/22 [History] Ibuprofen [Motrin Ib] 600 mg PO Q6H PRN 11/11/22 [History] cloNIDine HCL [Catapres] 0.1 - 0.3 mg PO DIRECTED PRN 11/11/22 [History] ondansetron HCL [Zofran] 8 mg PO Q6H PRN 11/11/22 [History] Amoxicillin 500 mg PO BID #14 cap 11/12/22 [Rx] Folic Acid 1 mg PO DAILY #14 tab 11/12/22 [Rx] Multivitamins, Thera [Multivitamin (formulary)] 1 each PO DAILY #14 tab 11/12/22 [Rx] Thiamine [Vitamin B-1] 100 mg PO DAILY #14 tab 11/12/22 [Rx] Follow up Appointment(s)/Referral(s): None,Stated [Primary Care Provider] - 1-2 days Discharge Disposition: OTHER INSTITUTION NOT DEFINED
[2022-11-13] MEDS ORDERED: PANTOPRAZOLE 40 MG TABLET PO SCH (07:30)
== END 2022-11-12 15:00 | disposition home or self-care (01) ==
LOC: EC 11:46 → 3SCARD 14:09
PROVIDERS: ADMIT Internal Medicine; ATTEND Internal Medicine
DX: T42.4X1A Poisoning by benzodiazepines, accidental (unintentional), initial encounter (principal); J02.0 Streptococcal pharyngitis; F14.10 Cocaine abuse, uncomplicated; F10.10 Alcohol abuse, uncomplicated; F17.200 Nicotine dependence, unspecified, uncomplicated; E87.1 Hypo-osmolality and hyponatremia; R53.1 Weakness; R41.0 Disorientation, unspecified; R47.81 Slurred speech; R26.81 Unsteadiness on feet; R53.83 Other fatigue; Z79.899 Other long term (current) drug therapy; Z98.890 Other specified postprocedural states
CPT/HCPCS: 96376; 96372; 96361; 96374; 96375; 99285; 36415; 93005; 87651; 80053; 83735; 84100; 84443; 85025; 85610; 85730; 86308; 81003; 70360; 70450; G0378 ×2; J2930; J1650; J7512 ×2; C9113 ×2